=== PATIENT | male | born 1930 | race Caucasian/White ===

== ENCOUNTER → 2017-02-02 | Outpatient (CLI) | payer MEDICARE, OTHER ==
[~2017-02-02] MED LIST: ASPIRIN EC81 MG PO; FISH OIL 1,0001 EAC4 PO; FLOMAX0.4 MG PO; IMDUR30 MG PO; LOPRESSOR25 MG PO; PRINIVIL (ZESTRI5 MG PO; VITAMIN B-12500 MCG PO; VITAMIN D2000 UNIT PO; VITAMIN E400 UNI2 PO
[2017-02-02 16:17] LABS: CPK 120 IU/L (35-332)
== END ==
LOC: LGSMG 15:58
PROVIDERS: Registered Nurse
DX: R07.9 Chest pain, unspecified (principal); R10.9 Unspecified abdominal pain; K59.00 Constipation, unspecified

== ENCOUNTER → 2017-02-04 | Outpatient (CLI) | payer MEDICARE, OTHER ==
--- NOTE | ~2017-02-04 | ESTC ---
Cardiac Perfusion Imaging Demographics Patient Name RICARDO Pedraza Gender Male Patient Number [id number] Race Visit Number [id number] Ethnicity [employer] Room Number Accession Number [id number] Height 840 inches Date of 1930 Weight 133 pounds Nell Lopez Date of study 02/04/2017 Physician Nell Supervising /KELSY JOHNSON Technologist Everardo Camejo Ordering Physician Kianna Braden Roettger Anujamara Camejo safety relief valve technician RDCS, RVT Stress ECG Reading Kianna Nurse Lilliana Banks RN Physician Nell The procedure was explained in detail to the patient. Risks, complications and alternative treatments were reviewed. Written consent was obtained. Medications Reviewed with Patient prior to Procedure. Procedure Admit Source:Other. Procedure Type: Nuclear Stress Test:Cardiolite Stress Test Procedure Start time: 02/04/2017 09:30 Risk Factors The patient risk factors include:treated hypertension. Conclusions Summary Perfusion Images: The overall quality of the study is poor, due to gastrointestinal tracer uptake. Left ventricular cavity is noted to be normal on the stress and rest studies. The right ventricle is not visualized and cannot be assessed. Stress SPECT images and Rest SPECT images demonstrate severely decreased tracer uptake in the inferior wall and septum. On Gated SPECT imaging wall motion could not be adequately evaluated due to poor tracer uptake in the septal and inferior mixon . Impression Myocardial perfusion imaging is abnormal. The images reveal a mostly fixed defect in the basal to apical inferior wall and septum. Left ventricular systolic function and wall motion could not be accurately evaluated due to inadequate tracer uptake in the septal and inferior mixon. Cannot exclude ischemia in the septal and inferior mixon due to poor tracer uptake in both stress and rest images. There are no previous studies for comparison. Clinical correlation is recommended. Stress Protocols Resting ECG Sinus rhythm Pre-stress physical exam: Patient assessed by Dr Lopez prior to testing. Stress Protocol:Pharmacologic Predicted HR: 135 bpm ECG Findings No ECG changes suggestive of ischemia. Arrhythmias No rhythm abnormality. Symptoms Dyspnea, chest tightness Stress Interpretation ECG portion of stress test is negative for ischemia by diagnostic criteria. Imaging Results Summed scores - Summed stress score: 15 - Summed rest score: 16 - Summed difference score: -1 Stress ejection Ejection fraction:69 % EDV :101 ml ESV :31 ml Stroke volume :70 ml LV mass :131 gr Imaging Protocols Rest Stress Isotope:Tc99m Sestamibi IV Isotope dose:32 mCi Isotope dose:9.9 mCi Date:02/04/2017 09:48 Date:02/04/2017 07:37 Technique: SPECT Technique: Gated Supine SPECT Supine Scan Time:45-60 minutes post Scan Time:45-60 minutes post injection injection Procedure Medications - Regadenoson (Lexiscan) 0.4 mg IV over 10-15 sec. I.V. 0.4 mg. Medications administered per verbal order and read back to physician prior to administration. Medical History Admission Data Admission date: 02/04/2017 Admission Time: 07:09 Hospital Status: Outpatient. Signatures dtt: NELL LOPEZ dtd: 02/04/17 0930 Physician Self Edit
--- NOTE | ~2017-02-04 | ECHO ---
Transthoracic Echocardiography Report (TTE) Demographics Patient Name CARRIE SILVA Date of Study 02/04/2017 Patient Number [id number] Visit Number [id number] Date of 1930 Room Number Gender Male Number Age 86 year(s) Referring Yolande Vargas Truer Pinion [employer] Wheel Annie Leslie RDCS, Physician RVT Kianna Camejo Physician Interpreting Kianna Camejo Glazier Artist Physician Supervising Ordering Kianna Camejo MD/MLP Physician Nurse Stress Yarn Cleaner Conclusions Contractility Score Summary Normal Left Ventricular contractility was noted. Summary Technically difficult exam due to poor acoustical windows. The estimated left ventricular ejection fraction is 55-60%. Moderately dilated right ventricle. The right atrium is moderately dilated. The aortic valve is mildly sclerotic. Mild tricuspid regurgitation by color Doppler. There is mild to moderate pulmonary hypertension. The estimated pulmonary pressure (RVSP) is 40-50 mmHg. Diastolic assessment reveals Grade I diastolic dysfunction. Procedure Type of Study TTE procedure:2D Echocardiogram. Procedure Date Date: 02/04/2017 Start: 10:07 AM Study Location: Echo Lab Technical Quality: Limited visualization due to poor acoustical window. Indications:Chest pain. Appropriate Use Criteria: 9 Patient Status: Routine HR: 71 bpm BP: 148/67 mmHg M-Mode/2D Measurements Cardiac Output: 8.7 l/min LVOT: 2.3 cm RV Base: 4.54 cm LVOT VTI: 29.5 cm RV Mid: 3.7 cm LV Stroke volume: 122.5 ml TAPSE: 2.79 cm TDI-S': 14.8 cm/s Doppler Measurements AV Peak Velocity: 1.18 m/s MV Peak E-Wave: 0.63 m/s AV Peak Gradient: 5.57 mmHg MV Peak A-Wave: 0.85 m/s AV Mean Gradient: 3 mmHg MV E/A Ratio: 0.73 LVOT Peak Velocity: 1.12 m/s MV P1/2t: 85 msec TR Gradient:39.69 mmHg PV Peak Velocity: 1.67 m/s Estimated RAP:15 mmHg PV Peak Gradient: 11.16 mmHg Estimated RVSP: 55 mmHg Estimated PASP: 54.69 mmHg E' Septal Velocity: 0.06 m/s A' Septal Velocity: 0.12 m/s E' Lateral Velocity: 0.08 m/s A' Lateral Velocity: 0.15 m/s Findings Left Ventricle The left ventricle appears normal in size . Diastolic assessment reveals Grade I diastolic dysfunction. Right Ventricle Moderately dilated right ventricle. Left Atrium Normal left atrial size. Right Atrium The right atrium is moderately dilated. Mitral Valve Trivial mitral regurgitation by color Doppler. Aortic Valve The aortic valve is mildly sclerotic. Tricuspid Valve Mild tricuspid regurgitation by color Doppler. There is mild to moderate pulmonary hypertension. The estimated pulmonary pressure (RVSP) is 40-50 mmHg. Pulmonic Valve Mild pulmonic valve regurgitation by color Doppler. Pericardial Effusion No evidence of pericardial effusion. Miscellaneous Visualized portions of the aortic root and ascending aorta appear normal in size. Pleural Effusion No evidence of pleural effusion. Contractility Score LV regional wall motion:(0-Non visualized 1-Normal 2-Hypokinesis 3-Akinesis 4-Dyskinesis 5-Aneurysm) Signature dtt: HANNAH LOPEZ dtd: 02/04/17 [facility] Physician Self Edit
== END | disposition disaster alternative care site (69) ==
LOC: GRAD 07:09
DX: R07.9 Chest pain, unspecified (principal); R06.00 Dyspnea, unspecified; Q21.9 Congenital malformation of cardiac septum, unspecified; I51.7 Cardiomegaly; I72.9 Aneurysm of unspecified site; I27.2 Other secondary pulmonary hypertension
CPT/HCPCS: A9500; J2785

== ENCOUNTER 2017-02-06 08:08 | Outpatient (CLI) | payer MEDICARE, OTHER ==
[~2017-02-06] VITALS: Ht 177.8 cm; Wt 57.4 kg
--- NOTE | 2017-02-06 14:17 | NUR ---
ENTERED PATIENT'S ROOM AT 1305 AND NOTED BLOOD AROUND THE FEMORAL SITE. PRESSURE WAS APPLIED IMMEDIATELY. CALLED FOR HELP. PATIENTS VITAL WERE STABLE. PATIENT STATED HE FELT FINE AND HAD NOT BEEN MOVING HIS LEG. HELP ARRIVED AT 1306, DR. LOPEZ NOTIFIED AT 1308 AND AT THE BEDSIDE AT 1320. CONTRACTING ANALYST NOTIFIED AT 1307 AND AT BEDSIDE AT 1308 WHEN THEY BEGAN HOLDING PRESSURE, BLEEDING STOPPED AT 1310, PRESSURE HELD UNTIL 1328. SITE REDRESSED. WILL CONTINUE TO MONITOR.
== END 2017-02-06 14:30 | disposition disaster alternative care site (69) ==
LOC: GCAT 08:08 → GPCU 08:08 → GCAT 14:30
DX: I25.110 Atherosclerotic heart disease of native coronary artery with unstable angina pectoris (principal); I10 Essential (primary) hypertension; Z87.891 Personal history of nicotine dependence; Z79.82 Long term (current) use of aspirin
CPT/HCPCS: C1769; C1887; J1644; J2250; J3010; J7030

== ENCOUNTER → 2017-02-12 | Outpatient (CLI) | payer MEDICARE, OTHER ==
[2017-02-06 09:16] LABS: BASOPHIL % 0.2 %; EOSINOPHIL # 0.1 K/uL (0.0-0.5); EOSINOPHIL % 1.1 %; HEMATOCRIT 36.3 % (33.0-50.0); HEMOGLOBIN 11.8 g/dL (11.0-16.0); IMMATURE GRANULOCYTE % 0.2 %; LYMPHOCYTE # 1.2 K/uL (0.8-4.0); MCH 32.9 pg (27.0-34.0); MCHC 32.5 gm/dL (32.0-36.5); MCV 101.1 fl (83.0-98.0); MONOCYTE # 0.5 K/uL (0.0-1.0); MONOCYTE % 9.2 %; MPV 10.2 fl (9.4-12.4); NEUTROPHIL # (ANC) 3.9 K/uL (1.4-9.0); NEUTROPHIL % 68.3 %; NRBC % 0 /100WBC (0-0.00); PLATELET COUNT 155 K/uL (150-450); RBC 3.59 M/uL (3.50-5.50); RDW-CV 13.5 % (11.9-14.6); WBC 5.7 K/uL (4.0-11.0)
[2017-02-06 09:25] LABS: INR - (THERAPEUTIC) 1.04 (0.92-1.07); PROTIME 10.9 SECONDS (9.8-11.4); PTT 25 SECONDS (25-32)
[2017-02-06 09:36] LABS: ALBUMIN 3.3 gm/dL (3.5-5.0); ALK PHOS 65 IU/L (33-138); ALT 21 IU/L (12-78); ANION GAP 9.4 (10.0-19.0); AST 20 IU/L (10-40); BLOOD UREA NITROGEN 25 mg/dL (6-24); CALCIUM 8.2 mg/dL (8.5-10.5); CHLORIDE 107 mMol/L (96-110); CO2 30 mMol/L (22-32); CREATININE 0.8 mg/dL (0.6-1.3); ESTIMATED GFR (MDRD EQUATION) > 60; POTASSIUM 4.4 mMol/L (3.7-5.1); SODIUM 142 mMol/L (135-145); TOTAL BILIRUBIN 0.4 mg/dL (0.0-1.5); TOTAL PROTEIN 6.3 g/dL (6.0-8.4)
--- NOTE | ~2017-02-12 | CATH ---
Cardiac Diagnostic + PCI Report Demographics Patient Name RICARDO Pedraza Gender Male Date of 1930 Age 86 year(s) Patient Number [id number] Date of Study 02/06/2017 Visit Number [id number] [place] [id number] Ht 177.8 cm Wt 57.4 kg Referring Yolande Vargas Primary Physician Physician Performing [facility] Secondary Physician Physician Ximena Camejo Diagnostic [facility] Assisting Physician Physician Nell Interventional [facility] Physician Bobbin Stripper Physician Ximena LOGAN Findings and Conclusions Diagnostic Findings and Conclusion 1 vessel CAD Two 50% tandem lesions noted in mid LAD with WILIAN II flow Diagnostic Recommendations iFR of LAD Interventional Findings and Conclusion iFR of mid LAD were 0.90, 0.90 and 0.91. The LAD lesions are not physiologically significant based on iFR values and medical therapy is recommended. Improvement of flow in LAD with IC Nitro. Interventional Recommendations Patient will be discharged later today. Patient has been instructed to not lift anything more than 5 pounds for 1 week. Aggressive risk factor management. Aggressive medical therapy for coronary artery disease. Statin. ASA. Beta Niesha. Lipid lowering medication: statin will be given. Cardiac diet . Optimization of medical therapy as an outpatient. Procedure Description The patient was brought to the diagnostic cardiac catheterization-EP laboratory in the fasting, non-sedated state. Informed consent was obtained in the written and verbal form after the risks and benefits were explained. The patient had no further questions and agreed to proceed. The planned puncture-incision site(s) were shaved and prepped with ChloraPrep and draped in the usual sterile manner. Conscious sedation, supplemental oxygen, and pain control medications were delivered by a registered nurse under physician guidance. Surface ECG rhythm, blood pressure measurement, and pulse oximetry were monitored throughout the procedure. Arterial access. The radial access site was infiltrated with lidocaine. Several attempts were made to enter the vessel with the Seldinger technique. A sheath was minimally advanced into the vessel but was unable to advance wire any further. Access site aborted and R Band was placed. Arterial access. The femoral access site was infiltrated with lidocaine. The vessel was entered with the Seldinger technique. A sheath was advanced into the vessel and used for catheter placement. Selective left coronary angiography. A catheter was advanced into the left coronary vessel ostium under Fluoroscopic guidance. Contrast was injected by hand. Images were obtained in multiple projections. Selective right coronary angiography. A catheter was advanced into the right coronary vessel ostium under fluoroscopic guidance. Contrast was injected by hand. Images were obtained in multiple projections. Left heart catheterization. A catheter was advanced across the aortic valve to the left ventricle under fluoroscopic guidance. Resting hemodynamics were obtained. iFR measurement was performed. The vessel was entered with a guiding catheter. The iFR wire was normalized and then advanced across the lesion. Measurements were taken. Arterial artery hemostasis was achieved. The patient was transferred to a regular nursing floor via cart accompanied by a nurse. The patient left the laboratory in stable condition. Diagnostic Cath Status: Elective Interventional Cath Status: Elective Procedure Procedure Type Diagnostic procedure:Angiography:, Coronary Angios w/[facility] PCI procedure:Additional Imaging:, FFR/iFR:, Initial Vessel Indications: Unstable angina. The procedure was explained in detail to the patient. Risks, complications and alternative treatments were reviewed. Written consent was obtained. Medications Reviewed with Patient prior to Procedure. Angiographic Findings Dominance: Right Cardiac Arteries and Lesion Findings LMCA: Normal (0% Stenosis). LAD: Lesion on Mid LAD: Mid subsection.50% stenosis . Pre procedure WILIAN II flow was noted. FFR + + + + !FFR !Stage/Medication !Dosage ! + + + + !0.9 ! ! ! + + + + Comments:iFR performed. 0.90 was lowest iFR value. Devices used - [employer] Pressure Wire. Number of passes: 1. Lesion on 2nd Diag: Ostial.20% stenosis . Pre procedure WILIAN II flow was noted. Lesion on Mid LAD: Proximal subsection.50% stenosis . Pre procedure WILIAN II flow was noted. LCx: Normal (0% Stenosis). RCA: Normal (0% Stenosis). Coronary Tree Procedure Data Procedure Date Date: 02/06/2017Start: 10:10 AMEnd: 11:41 AM Entry Locations - The Right Radial artery access attempt was not successful. Unsuccessful closure attempt was performed using: an R band. Hemostasis was successfully obtained using Mechanical Compression. Entry Comments: Dr. Dumont scrubbed in to assist in advancing the sheath. Closure Comments: R) band applied by Adolfo 12 cc air. - Retrograde Percutaneous access was performed through the Right Femoral artery (Primary location). A 6 Fr sheath was inserted. Hemostasis was successfully obtained using Manual Compression. Closure Comments: 20min of manual pressure held by Anabela GEE(Temo). Procedure Medications Order and Administration + + + + + !Time !Medication !Dosage !Route ! + + + + + !02/06/2017 10:10 AM !Versed !1 mg !I.V. ! + + + + + 02/06/2017 10:10 AM !Fentanyl !25 mcg !I.V. ! + + + + + !02/06/2017 10:50 AM !Heparin (ACC_3) !5000 units !I.V. bolus ! + + + + + !02/06/2017 11:07 AM !Heparin (ACC_3) !2000 units !I.V. bolus ! + + + + + !02/06/2017 11:12 AM !Nitroglycerin !200 mcg !I.C. ! + + + + + Devices Used - A5 Fr. BS JL 4 Diag. Catheterwas used for:Left coronary angiography. - A5 Fr. BS JL 3.5 Diag. Catheterwas used for:Was not used. - A5 Fr. BS JR 4 Diag. Catheterwas used for:Right coronary angiography. - A5 Fr. BS Angled Pigtail Diag. Catheterwas used for:LV Pressures. - A6 Fr. EBU 3.5 Guide Catheterwas used for:Fractional Flow [place] measurments. Contrast Material - Isovue 53424 ml Fluoroscopy Time: Diagnostic: 9:36 minutes. Total: 9:36 minutes. Fluoroscopy Dose: Diagnostic: 601 mGy. Total: 601 mGy. Estimated Blood Loss: 10 ml. Additional [facility] PCI Information PCI Indication:PCI for high risk Non-STEMI or unstable angina. Medical History Performed Procedures and Imaging Results - Stress testing with SPECT MPIwas performed. Results were: Indeterminant. Allergies - No known allergies. Risk Factors The patient risk factors include:hypertension, last creatinine: 0.8 mg/dl, creatinine clearance: 54.81 ml/min and former tobacco use. Admission Data Admission Date: 02/06/2017 Admission Time: 01:00 PM Admit Source: Other Admission Medications + +------+------+ + + + + !Medication !Dosage!Times !Last !Last !Administered !Comments ! ! ! !Per !Delivery !Delivery ! ! ! ! ! !Day !Date !Time ! ! ! + +------+------+ + + + + !NGOZI ! ! ! ! !Yes ! ! !Inhibitor ! ! ! ! ! ! ! !(any) ! ! ! ! ! ! ! + +------+------+ + + + + !Aspirin ! ! ! ! !Yes ! ! !(any) ! ! ! ! ! ! ! + +------+------+ + + + + !Beta Niesha! ! ! ! !Yes ! ! !(any) ! ! ! ! ! ! ! + +------+------+ + + + + Clinical Evaluation Leading to Procedure - The patient's CAD presentation was assessed as: Unstable angina. - The patient's anginal syndrome during the past two weeks was assessed as: Class II according to the [place] Cardiovascular [employer] Classification System (CCS). Anti-anginal medications were prescribed during the past two weeks. The medication is: Beta Blockers. Hemodynamics Condition: Rest O2 Consumption: Estimated: 185.34Heart Rate: 55 bpm Pressures (mmHg) +-----+ + !Site !Pressure ! +-----+ + !AO !104/48 (69) ! +-----+ + !LV !99/-12 ,9 ! +-----+ + !LV !101/-12 ,9 ! +-----+ + Shunts Oxygen Values O2 Capacity 160.48 O2 Consumption 185.34 Signatures dtt: NELL LOPEZ dtd: 02/06/17 1010 Physician Self Edit
== END | disposition disaster alternative care site (69) ==
LOC: GRAD 02-06 13:00
PROVIDERS: Registered Nurse
DX: K59.00 Constipation, unspecified (principal); I44.0 Atrioventricular block, first degree; I44.4 Left anterior fascicular block; I25.10 Atherosclerotic heart disease of native coronary artery without angina pectoris; I10 Essential (primary) hypertension; K92.0 Hematemesis; N28.1 Cyst of kidney, acquired; N40.0 Benign prostatic hyperplasia without lower urinary tract symptoms; N32.89 Other specified disorders of bladder; M43.8X6 Other specified deforming dorsopathies, lumbar region; R10.9 Unspecified abdominal pain; R07.89 Other chest pain; R00.1 Bradycardia, unspecified; R94.31 Abnormal electrocardiogram [ECG] [EKG]; Z87.891 Personal history of nicotine dependence

== ENCOUNTER → 2017-02-24 | Outpatient (CLI) | payer MEDICARE, OTHER ==
[2017-02-24 11:25] LABS: ALBUMIN 3.7 gm/dL (3.5-5.0); ALK PHOS 71 IU/L (33-138); ALT 21 IU/L (12-78); ANION GAP 11.5 (10.0-19.0); AST 20 IU/L (10-40); BLOOD UREA NITROGEN 23 mg/dL (6-24); CALCIUM 8.6 mg/dL (8.5-10.5); CHLORIDE 105 mMol/L (96-110); CO2 31 mMol/L (22-32); CREATININE 0.9 mg/dL (0.6-1.3); ESTIMATED GFR (MDRD EQUATION) > 60; POTASSIUM 4.5 mMol/L (3.7-5.1); SODIUM 143 mMol/L (135-145); TOTAL PROTEIN 6.7 g/dL (6.0-8.4)
[2017-02-24 11:26] LABS: TOTAL BILIRUBIN 0.7 mg/dL (0.0-1.5)
== END | disposition disaster alternative care site (69) ==
LOC: LNHI 10:53
PROVIDERS: Internal Medicine Interventional Cardiology
DX: R07.9 Chest pain, unspecified (principal); R06.00 Dyspnea, unspecified; K59.00 Constipation, unspecified

== ENCOUNTER → 2017-05-29 | Outpatient (CLI) | payer MEDICARE, OTHER ==
[2017-05-29 13:16] LABS: ALBUMIN 3.9 gm/dL (3.5-5.0); TOTAL BILIRUBIN 0.7 mg/dL (0.0-1.5); TOTAL PROTEIN 7.6 g/dL (6.0-8.4)
== END ==
LOC: LNHI 12:49
PROVIDERS: Internal Medicine Interventional Cardiology
DX: E78.5 Hyperlipidemia, unspecified (principal)